=== PATIENT | female | born 1985 ===

== ENCOUNTER 2025-03-28 07:00 | Day surgery (SDC) | payer OTHER ==
[2025-03-25 11:54] VITALS: BP 125/87
[~2025-03-28] VITALS: Ht 139.7 cm; Wt 52.2 kg
[~2025-03-28 07:00] MED LIST: DOLOBID500 MG; FOLIC ACID1 MG; HUMIRA40 MG/0.1; PREDNISONE5 MG/5 ML; PROLIA60 MG/1 ML SQ; RINVOQ ER15 MG PO
[2025-03-28] MEDS ORDERED: CEFAZOLIN SODIUM 1,000 MG VIAL ONE (12:35)
[2025-03-28] MEDS ORDERED: CHLORHEXIDINE GLUCONATE 120 ML BOTTLE TOP ONE ×2 (13:58→16:00)
[2025-03-28] MEDS ORDERED: CEFAZOLIN SODIUM 1,000 MG VIAL IV ONE (16:00)
== END 2025-03-28 19:25 | disposition home or self-care (01) ==
LOC: CIR.AMB 07:00
PROVIDERS: ATTEND Surgery
DX: D48.62 Neoplasm of uncertain behavior of left breast (principal); D24.2 Benign neoplasm of left breast; R92.1 Mammographic calcification found on diagnostic imaging of breast; N60.82 Other benign mammary dysplasias of left breast; N65.1 Disproportion of reconstructed breast